=== PATIENT | female | born 1965 | race Caucasian/White ===

== ENCOUNTER → 2021-04-24 | Outpatient (CLI) | payer BC, OTHER ==
[~2021-04-24] MED LIST: BENTYL 10MG CAP10 MG PO; LISINOPRIL40 MG PO; METHOCARBAMOL750 MG PO; NABUMETONE750 MG PO; PROTONIX20 MG PO; PROZAC40 MG PO; ZOFRAN4 MG PO
== END ==
LOC: RAD 14:03
DX: M25.561 Pain in right knee (principal)
CPT/HCPCS: 73562